=== PATIENT | female | born 1985 | race African-American/Black ===

== ENCOUNTER 2019-05-20 08:37 | Emergency (ER) | payer BC ==
[~2019-05-20] VITALS: Ht 160 cm; Wt 60.3 kg
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
[2019-05-20 08:45] VITALS: BP 127/81
[2019-05-20] MEDS ORDERED: PRENATAL GUMMI1 EACH PO (08:57)
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
[2019-05-20 09:17] LABS: EOSINOPHILS % (AUTO) 0.8 % (0.0-3.0); HEMATOCRIT 35.2 % (37.0-47.0); HEMOGLOBIN 11.4 G/DL (12.0-16.0); LYMPHOCYTES % (AUTO) 25.9 % (20.0-45.0); MEAN CORPUSCULAR VOLUME 92 FL (80-99); MONOCYTES % (AUTO) 3.2 % (1.0-10.0); NEUTROPHILS % (AUTO) 69.1 % (45.0-75.0); PLATELET COUNT 322 K/UL (150-450); RED BLOOD COUNT 3.82 M/UL (4.20-5.40); RED CELL DISTRIBUTION WIDTH 12.5 % (11.6-14.8)
--- NOTE | 2019-05-20 09:18 | NUR ---
ED Nurse Note: [facility]AS[facility] AT BEDSIDE.
[2019-05-20 09:24] LABS: APPEARANCE,URINE SLIGHTLY CLOUDY; BILIRUBIN, URINE NEGATIVE (NEGATIVE); GLUCOSE, URINE (UA) NEGATIVE (NEGATIVE); KETONES,URINE NEGATIVE (NEGATIVE); LEUKOCYTE ESTERASE ,URINE NEGATIVE (NEGATIVE); NITRITE,URINE NEGATIVE (NEGATIVE); PH,URINE 6 (4.5-8.0); PROTEIN,URINE NEGATIVE (NEGATIVE); UROBILINOGEN,URINE NORMAL MG/DL (0.0-1.0)
[2019-05-20 09:25] LABS: COLOR,URINE YELLOW
--- NOTE | 2019-05-20 09:43 | NUR ---
ED Nurse Note: [employer] AT BEDSIDE.
--- NOTE | 2019-05-20 10:14 | NUR ---
ED Nurse Note: PT LAYING PEACEFULLY IN BED IN NAD. AOX4. DISCHARGE PAPERWORK EXPLAINED TO PT. TRANSFER PAPERWORK FOR [facility] EXPLAINED TO PT. PT VERBALIZES UNDERSTANDING AND STATES SHE WILL HEAD OVER TO [facility] IMMEDIATELY FOLLOWING DISCHARGE FROM [facility]. DISCHARGE PAPERWORK AND TRANSFER PAPERWORK GIVEN TO PT, IV AND ID WRISTBAND REMOVED. PT WALKED OUT OF ER WITH STEADY GAIT AND ALL BELONGINGS ACCOMPANIED BY FAMILY MEMBERS. VSS.
[2019-05-20 10:15] VITALS: BP 106/69
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
== END 2019-05-20 10:17 | disposition short-term general hospital (02) ==
LOC: EDBD 08:37 → EMR 08:56
DX: O26.92 Pregnancy related conditions, unspecified, second trimester (principal); Z3A.23 23 weeks gestation of pregnancy; R10.2 Pelvic and perineal pain; R10.32 Left lower quadrant pain; V43.52XA Car driver injured in collision with other type car in traffic accident, initial encounter; Y92.410 Unspecified street and highway as the place of occurrence of the external cause
CPT/HCPCS: 36415; 76805; 81003; 85025; 86850; 86900; 86901; 87086; 99284